=== PATIENT | male | born 1955 | race Two or more races ===

== ENCOUNTER 2023-05-30 04:00 | Day surgery (SDC) | payer OTHER, MEDICARE ==
[2023-05-25 17:52] VITALS: BMI 24.0
[2023-05-30] MEDS ORDERED: PROPOFOL 20 ML ONE (14:30)
[2023-05-30] MEDS ORDERED: LIDOCAINE HCL/PF 2% SDV 5ML VIAL ONE (14:30)
[2023-05-30] MEDS ORDERED: ceFAZolin SODIUM 1 GM VIAL ONE (14:30)
[2023-05-30] MEDS ORDERED: MIDAZOLAM HCL 2 MG/2 ML SINGLE DOSE VIAL ONE (14:30)
[2023-05-30] MEDS ORDERED: ceFAZolin 2 GRAM PREMIX BAG IVPB ONE (14:48)
[2023-05-30] MEDS ORDERED: DEXAMETHASONE SOD PHOSPHATE 4 MG/1 ML VIAL ONE (14:59)
[2023-05-30] MEDS ORDERED: ONDANSETRON 4 MG/2 ML VIAL ONE (14:59)
[2023-05-30] MEDS ORDERED: IBUPROFEN 800 MG/8 ML IJ IVPB PRN (15:21)
[2023-05-30] MEDS ORDERED: ONDANSETRON 4 MG/2 ML VIAL IVPUSH PRN (15:21)
[2023-05-30] MEDS ORDERED: oxyCODONE HCL 5 MG TABLET PO PRN (15:21)
[2023-05-30] MEDS ORDERED: LACTATED RINGERS SOLUTION 1,000 ML IV SCH (15:30)
[2023-05-30 19:37] VITALS: RESP 20; TEMP 97.3
[2023-05-30 19:39] VITALS: BP 144/84; PULSE 78
== END 2023-05-30 19:15 | disposition home or self-care (01) ==
LOC: JASU-SURG 04:00
PROVIDERS: ATTEND Urology
PROC: 0TCB8ZZ Extirpation of Matter from Bladder, Via Natural or Artificial Opening Endoscopic (ICD-10-PCS; 2023-05-30)
PROC: 0VT08ZZ Resection of Prostate, Via Natural or Artificial Opening Endoscopic (ICD-10-PCS; principal; 2023-05-30 14:30)
DX: N40.1 Benign prostatic hyperplasia with lower urinary tract symptoms (principal); N21.0 Calculus in bladder; N32.89 Other specified disorders of bladder
CPT/HCPCS: 94760

== ENCOUNTER 2023-05-30 22:50 | Observation (INO) | payer OTHER, MEDICARE ==
[2023-05-30 22:54] VITALS: BMI 24.3
[2023-05-30] MEDS ORDERED: LIDOCAINE HCL 2% JELLY 10 ML CARTRIDGE PR ONE (23:58)
[2023-05-31] MEDS ORDERED: LIDOCAINE HCL 2% JELLY 6 ML TP ONE
[2023-05-31] MEDS ORDERED: morphine CARPU-JECT 2 MG/1 ML DISP.SYRIN IVPUSH ONE (00:33)
[2023-05-31] MEDS ORDERED: LIDOCAINE HCL 2% JELLY 11 ML TP ONE (01:10)
[2023-05-31 01:33] LABS: BASO % 0.2 % (0-2.0); HEMATOCRIT 39.5 % (35.4-49); HEMOGLOBIN 13.2 GM/dL (11.7-16.9); MCH 30.9 pg (25.7-33.7); MCHC 33.5 g/dl (32.0-35.9); MEAN CELL VOLUME 92.2 fl (80-96); MEAN PLT VOLUME 6.4 fl (7.5-11.1); MONO % 4.4 % (3.8-10.2); NEUT % 88.4 % (42.8-82.8); PLATELET COUNT 285 10^3/uL (134-434); RBC 4.28 M/mm3 (4.00-5.60); RDW 14.1 % (11.9-15.9); WHITE BLOOD COUNT 12.3 K/mm3 (4.0-10.0)
[2023-05-31 01:40] LABS: INR 1.08 (0.83-1.09); PROTHROMBIN TIME (PATIENT) 12.5 SEC (9.7-13.0)
[2023-05-31 01:43] LABS: ACTIVATED PTT 28.1 SECONDS (25.2-36.5)
[2023-05-31 01:53] LABS: POTASSIUM 4.4 mmol/L (3.5-5.1)
[2023-05-31 01:54] LABS: CALCIUM 9.1 mg/dL (8.5-10.1)
[2023-05-31 01:55] LABS: ALBUMIN 3.8 g/dl (3.4-5.0); BLOOD UREA NITROGEN 15.6 mg/dL (7-18)
[2023-05-31 01:58] LABS: CREATININE 1.2 mg/dL (0.55-1.3)
[2023-05-31 02:00] LABS: BILIRUBIN,TOTAL 1.6 mg/dL (0.2-1); TOT PROT 7.8 g/dl (6.4-8.2)
[2023-05-31] MEDS ORDERED: DOCUSATE SODIUM 100 MG CAPSULE (FP) PO PRN (05:00)
[2023-05-31] MEDS ORDERED: ACETAMINOPHEN 1000 MG/100 ML BAG IVPB PRN (05:04)
[2023-05-31 06:15] LABS: BASO % 0.1 % (0-2.0); HEMATOCRIT 32.5 % (35.4-49); HEMOGLOBIN 11.5 GM/dL (11.7-16.9); LYMPH % 12.4 % (8-40); MCH 32.3 pg (25.7-33.7); MCHC 35.3 g/dl (32.0-35.9); MEAN CELL VOLUME 91.5 fl (80-96); MEAN PLT VOLUME 6.4 fl (7.5-11.1); MONO % 6.8 % (3.8-10.2); NEUT % 80.7 % (42.8-82.8); PLATELET COUNT 222 10^3/uL (134-434); RBC 3.55 M/mm3 (4.00-5.60); RDW 13.7 % (11.9-15.9); WHITE BLOOD COUNT 12.5 K/mm3 (4.0-10.0)
[2023-05-31 06:30] LABS: POTASSIUM 4.3 mmol/L (3.5-5.1)
[2023-05-31 06:31] LABS: BLOOD UREA NITROGEN 15.3 mg/dL (7-18); CALCIUM 8.8 mg/dL (8.5-10.1)
[2023-05-31 06:34] LABS: PHOSPHOROUS 3.6 mg/dL (2.5-4.9)
[2023-05-31 06:35] LABS: CREATININE 1.1 mg/dL (0.55-1.3)
[2023-05-31 08:09] VITALS: RESP 18
[2023-05-31] MEDS ORDERED: DULoxetine HCL 20 MG CAPSULE.DR PO SCH (10:00)
[2023-05-31] MEDS ORDERED: SODIUM CHLORIDE 1,000 ML IV SCH (10:15)
[2023-05-31 18:14] VITALS: BP 132/76; PULSE 76; TEMP 97
[2023-06-01] MEDS ORDERED: ACETAMINOPHEN 325 MG TABLET (FP) PO PRN (05:00)
== END 2023-05-31 18:32 | disposition home or self-care (01) ==
LOC: JER 22:50 → JERBED 05-31 01:28 → J6S 05-31 06:37
PROVIDERS: ADMIT Internal Medicine; ATTEND Family Medicine
PROC: 0TWB70Z Revision of Drainage Device in Bladder, Via Natural or Artificial Opening (ICD-10-PCS; principal; 2023-05-31)
PROC: 3E0337Z Introduction of Electrolytic and Water Balance Substance into Peripheral Vein, Percutaneous Approach (ICD-10-PCS; 2023-05-31)
DX: Z43.6 Encounter for attention to other artificial openings of urinary tract (principal); N40.0 Benign prostatic hyperplasia without lower urinary tract symptoms; R31.9 Hematuria, unspecified; F41.9 Anxiety disorder, unspecified; Z98.890 Other specified postprocedural states; Z87.738 Personal history of other specified (corrected) congenital malformations of digestive system; Z90.79 Acquired absence of other genital organ(s)
CPT/HCPCS: 36415; 80048; 80053; 83735; 84100; 85025; 85610; 85730; 86850; 86900; 86901; 96360; 99285-25; G0378